=== PATIENT | female | born 1990 | race Caucasian/White ===

== ENCOUNTER 2022-11-24 01:58 | Emergency (ER) | payer MEDICAID, OTHER ==
[~2022-11-24] VITALS: Ht 162.6 cm; Wt 99.8 kg
[2022-11-24 02:27] VITALS: BP 122/87
--- NOTE | 2022-11-24 03:44 | NUR ---
Dr. Davis examining patient.
[2022-11-24] MEDS ORDERED: ONDANSETRON 4 MG/2 ML VIAL IVP ONE (03:50)
[2022-11-24] MEDS ORDERED: NACL 0.9% 1,000 ML IV ONE (03:50)
--- NOTE | 2022-11-24 04:00 | NUR ---
Patient taken to bed 4.
[2022-11-24 04:16] LABS: BASOPHILS # (AUTO) 0.1 K/uL (0.00-0.22); BASOPHILS % (AUTO) 0.8 % (0.0-2.0); EOSINOPHILS # (AUTO) 0.4 K/uL (0-0.4); EOSINOPHILS % (AUTO) 4.4 % (0.0-4.0); HEMATOCRIT 38.4 % (36-48); HEMOGLOBIN 12.5 g/dL (12.0-16.0); LYMPHOCYTES # (AUTO) 4.5 K/uL (2.5-16.5); LYMPHOCYTES % (AUTO) 45.6 % (20.5-51.1); MEAN CORPUSCULAR HEMOGLOBIN 30 pg (27-31); MEAN CORPUSCULAR HGB CONC 32 g/dL (33-37); MEAN CORPUSCULAR VOLUME 90.8 fL (80-94); MONOCYTES # (AUTO) 0.6 K/uL (0.8-1.0); MONOCYTES % (AUTO) 5.7 % (1.7-9.3); NEUTROPHILS # (AUTO) 4.3 K/uL (1.8-7.7); NEUTROPHILS % (AUTO) 43.5 % (42.2-75.2); PLATELET COUNT (AUTO) 237 K/uL (140-450); RED BLOOD CELL COUNT(AUTO) 4.23 MIL/uL (4.20-5.40); WHITE BLOOD COUNT (AUTO) 9.8 K/uL (4.8-10.8)
[2022-11-24 04:42] LABS: ALBUMIN 3.6 g/dL (3.4-5.0); ANION GAP 10.5 (8-16); CARBON DIOXIDE 28.4 mmol/L (21-32); CREATININE 0.9 mg/dL (0.6-1.3); POTASSIUM 3.9 mmol/L (3.5-5.1); TOTAL BILIRUBIN 0.2 mg/dL (0.0-1.0)
[2022-11-24] MEDS ORDERED: ONDA-188 SL (05:50)
[2022-11-24 06:09] VITALS: BP 122/87
--- NOTE | 2022-11-24 06:11 | NUR ---
Patient discharged with v/s stable. Written and verbal after care instructions given and explained. Patient verbalized understanding. Ambulatory with steady gait. All questions addressed prior to discharge. Advised to follow up with PMD. pt left with his belongings
== END 2022-11-24 05:58 | disposition home or self-care (01) ==
LOC: MED 01:58
DX: A08.39 Other viral enteritis (principal); Z79.899 Other long term (current) drug therapy
CPT/HCPCS: 36415; 80053; 85025; 96361; 96374; 99283; J2405; J7030